=== PATIENT | female | born 1935 | race Caucasian/White ===

== ENCOUNTER 2016-09-17 12:30 | Emergency (ER) | payer BC ==
[~2016-09-17] VITALS: Ht 160 cm; Wt 67.0 kg
[~2016-09-17 12:30] MED LIST: ACET500C5 PO; PROM6.25 PO
[2016-09-17 12:31] VITALS: Ht 160 cm; Wt 67.0 kg
--- NOTE | 2016-09-17 13:33 | RADRPT ---
PROCEDURE: XR Chest. CLINICAL INDICATION: Cough. Neck pain. TECHNIQUE: Two views. Frontal and lateral. COMPARISON: 11/06/2015. FINDINGS: The lungs are clear. The heart size is normal. There is calcification in the aorta consistent with atherosclerosis. There is no pleural effusion. There is no pneumothorax. IMPRESSION: 1. Atherosclerosis. 2. Otherwise normal chest radiograph. RPTAT: QQ .Hernan Barber MD, MD Date Time Electronically viewed and signed by .Hernan Barber MD, on 09/17/2016 13:33 .R/
[2016-09-17] MEDS ORDERED: TYL500 PO (14:20)
[2016-09-17] MEDS ORDERED: AZIT250T94 PO (14:20)
--- NOTE | 2016-09-17 14:33 | ERD ---
ER Documentation Chief Complaint Date/Time DATE: 09/17/16 TIME: 14:31 Chief Complaint 7/10 throat pain with intermittent fever x 3 days HPI This is an 81-year-old female presents to the ER with a sore throat, cough, ear pain, intermittent fevers for the last 3 days. Patient denies any chest pain or shortness of breath. Sore throat is burning in quality is worse whenever she swallows. She denies any difficulty in swallowing. Patient states that cough is dry and constant. She feels that she is getting worse. ROS 12 point review of systems was done, all negative except per HPI. Medications Home Meds Active Scripts Azithromycin* (Zithromax*) 250 Mg Tablet, 250 MG PO .ZPACK DIRECTED, #6 TAB TAKE 500 MG (2 TABS) THE FIRST DAY THEN 250 MG (1 TAB) DAYS 2-5 Prov:SHARON ARIZMENDI 09/17/16 Acetaminophen* (Tylenol*) 500 Mg Tab, 500 MG PO Q4H Y for MILD PAIN LEVEL 1-3 for 3 Days, TAB Prov:SHARON ARIZMENDI 09/17/16 Promethazine w/Codeine* (Phenergan w/Codeine* Syrup) 5 Ml Syrup, 5 ML PO Q4H Y for COUGH for 4 Days, ML Prov:GRAYSON GOVEA MD 11/06/15 Acetaminophen* (Tylophen*) 500 Mg Capsule, 1 CAP PO Q6H Y for PAIN AND OR ELEVATED TEMP, #16 CAP Prov:GRAYSON GOVEA MD 11/06/15 Allergies Allergies: Coded Allergies: Penicillins (Verified Allergy, Unknown, 09/17/16) PMhx/Soc History of Surgery: No Anesthesia Reaction: No Hx Neurological Disorder: No Hx Respiratory Disorders: No Hx Cardiac Disorders: No Hx Psychiatric Problems: No Hx Miscellaneous Medical Probl: No Hx Alcohol Use: No Hx Substance Use: No Hx Tobacco Use: No Physical Exam Vitals Vital Signs Date Time Temp Pulse Resp B/P Pulse Ox O2 Delivery O2 Flow Rate FiO2 09/17/16 12:31 98.3 96 18 129/53 95 Physical Exam GENERAL: The patient is well-developed, well-nourished, in no acute distress. NECK: Cervical spine is non tender with no step off. Supple, no nuchal rigidity HEENT: Atraumatic. Pupils equal, round and reactive to light. Extraocular muscles are grossly intact. Conjunctivae pink, no discharge. Bilateral tympanic membranes are clear with no evidence of erythema, effusion or dulling of the light reflex. Tonsilar erythema with no exudates or uvular deviation. Clear rhinorrhea. RESPIRATORY: Clear to auscultation bilaterally. There are no rales, wheezes or rhonchi. HEART: Regular rate and rhythm. No murmurs, clicks, rubs or gallops. EXTREMITIES: No clubbing or cyanosis. Full range of motion. Grossly neurovascularly intact. NEUROLOGIC: Alert and oriented. Cranial nerves II through XII are intact. SKIN: There is no rash. The skin is warm and dry. Procedures/MDM Differential diagnosis includes but is not limited to; Viral URI, allergic rhinitis, bronchitis, pertussis,pneumonia. This is likely viral in etiology. Clinical suspicion for pneumonia is low as patient appears well, is not hypoxic or in any respiratory distress. Additionally, patients physical examination is benign. Plan was discussed with patient they understand and agree. Patient will be given a trial of azithromycin only to be taken of symptoms last longer than a week. At this time there is no evidence of retropharyngeal abscess or peritonsillar abscess there is no uvular deviation. He does not have any stridor any difficulty in breathing. Patient needs to follow up with PCP in 1- 2 days or return to ER sooner if symptoms worsen. Departure Diagnosis: Primary Impression: Upper respiratory infection Condition: Stable Patient Instructions: Preventing Common Respiratory Infections Additional Instructions: Llame al doctor MERVIN y areli sonny LEE PARA DENTRO DE 1-2 FELIX.Dgale a la secretaria que nosotros le instruimos hacer esta lee.Avise o llame si gill condicin se empeora antes de la lee. Regresa aqui si peor o no mejor. SHARON ARIZMENDI Sep 17, 2016 14:33
== END 2016-09-17 14:33 | disposition home or self-care (01) ==
LOC: FTE 12:30
DX: J06.9 Acute upper respiratory infection, unspecified (principal)
CPT/HCPCS: 71020

== ENCOUNTER 2017-12-23 10:50 | Inpatient (IN) | END 2017-12-25 14:50 | disposition home or self-care (01) | DRG 392 ==

== ENCOUNTER 2018-05-03 21:15 | Emergency (ER) | END 2018-05-04 01:24 | disposition home or self-care (01) ==

== ENCOUNTER 2018-07-21 13:30 | Inpatient (IN) | payer MEDICARE, BC ==
[~2018-07-21] VITALS: Ht 162.6 cm; Wt 70.2 kg
[~2018-07-21 13:30] MED LIST changes: +ACET1TAB40 PO; +ACET325T40 PO; -ACET500C5 PO; +BEN50 PO; +CIPR500T4 PO; +CLAR500T PO; +DOCU-216 PO; +IBUP-1542 PO; +IBUP800T48 PO; +METR500T PO; +OMEP40CA6 PO; +ONDA4TAB8 PO; +PANT40TA3 PO; -PROM6.25 PO; +RANI150T5 PO
[2018-07-21] MEDS ORDERED: SODIUM CHLORIDE 0.9% 1L BAG IV* STA (13:57)
[2018-07-21] MEDS ORDERED: KETOROLAC 30 MG INJ IV STA (14:26)
[2018-07-21] MEDS ORDERED: LEVOFLOXACIN 750MG/D5W (PMX) 150 ML IVPB ONE (16:00)
[2018-07-21] MEDS ORDERED: VANCOMYCIN 1 GM (PMX) 250 ML IVPB ONE (16:00)
[2018-07-21] MEDS ORDERED: IPRATROPIUM (NEB) 0.5 MG/2.5 ML AMP NEB STA (16:11)
[2018-07-21] MEDS ORDERED: morphine 4 MG/ML VIAL IV STA (16:11)
[2018-07-21] MEDS ORDERED: ONDANSETRON 4 MG INJ IV STA (16:11)
[2018-07-21] MEDS ORDERED: ALBUTEROL 0.083% (NEB) 2.5 MG/3 ML AMP NEB STA (16:11)
[2018-07-21] MEDS ORDERED: ACETAMINOPHEN 500 MG TAB PO STA (16:16)
--- NOTE | 2018-07-21 16:23 | ERD ---
ER Documentation Chief Complaint Chief Complaint generalized weakness HPI This is an 82-year-old female with a past medical history of hypertension presents to the emergency department complaining of generalized myalgias, productive cough and fever for the past 3 days. The patient also indicates for the past several weeks she has been having a unilateral left-sided headache, 8 out of 10 in intensity but this is not the worst headache of her life. She saw her primary care physician regarding this headache and had an MRI of her brain performed on July 18, 2018. She denies any neck pain. She denies any recent travel or hospitalizations. She states she had a decrease in appetite. She denies any weakness of her upper or lower extremities. Her past surgical history includes cholecystectomy. ROS All systems reviewed and are negative except as per history of present illness. Medications Home Meds Discontinued Reported Medications Clarithromycin* (Clarithromycin*) 500 Mg Tablet, 500 MG PO BID, TAB STARTED 12-17-17 FOR 14 DAYS 12/23/17 Omeprazole* (Omeprazole*) 40 Mg Capsule.dr, 40 MG PO Q12, #30 CAP 12/23/17 Ranitidine Hcl* (Ranitidine Hcl*) 150 Mg Tablet, 150 MG PO Q12, #60 TAB 12/23/17 Discontinued Scripts Pantoprazole* (Protonix*) 40 Mg Tablet.dr, 40 MG PO DAILY, #30 TAB Prov:PASILABAN,SUNSHINEAR F 05/03/18 Ibuprofen* (Motrin*) 600 Mg Tab, 600 MG PO Q6H PRN for PAIN AND OR ELEVATED TEMP, #20 TAB Prov:PASILABANBHARTI F 05/03/18 Acetaminophen with Codeine (Acetaminophen-Cod #3 Tablet) 1 Each Tablet, 1 TAB PO Q6H PRN for SEVERE PAIN LEVEL 7-10, #10 TAB Prov:PASILABANSUNSHINEAR F 05/03/18 Ondansetron Hcl* (Zofran*) 4 Mg Tablet, 4 MG PO Q8H PRN for NAUSEA AND/OR VOMITING, #30 TAB Prov:PASILABAN,SUNSHINEAR F 05/03/18 Ciprofloxacin Hcl* (Ciprofloxacin Hcl*) 500 Mg Tablet, 500 MG PO BID for 10 Days, TAB Prov:PASILABANSUNSHINEAR F 05/03/18 Ibuprofen* (Motrin*) 800 Mg Tab, 800 MG PO Q6H PRN for PAIN for 5 Days, TAB otc Prov:CHIKYARAPPA,RAFAT K MD 12/25/17 Docusate Sodium (Dok) 100 Mg Capsule, 100 MG PO Q12H PRN for CONSTIPATION for 7 Days, CAP otc Prov:RAFAT RODRIGUEZ MD 12/25/17 Acetaminophen (MAPAP) 325 Mg Tablet, 650 MG PO Q6H PRN for PAIN LEVEL 1-3 OR FEVER for 7 Days, TAB otc Prov:RAFAT RODRIGUEZ MD 12/25/17 Metronidazole* (Flagyl*) 500 Mg Tablet, 500 MG PO Q8 for 7 Days, #23 TAB Prov:RAFAT RODRIGUEZ MD 12/25/17 Ciprofloxacin Hcl* (Ciprofloxacin Hcl*) 500 Mg Tablet, 500 MG PO BID@,18 for 7 Days, #15 TAB Prov:RAFAT RODRIGUEZ MD 12/25/17 Diphenhydramine Hcl* (Benadryl*) 50 Mg Cap, 50 MG PO Q6H PRN for ITCHING for 7 Days, CAP otc Prov:RAFAT RODRIGUEZ MD 12/25/17 Allergies Allergies: Coded Allergies: Penicillins (Verified Allergy, Unknown, 07/21/18) PMhx/Soc History of Surgery: Yes ( AND GALLBLADDER) Anesthesia Reaction: No Hx Neurological Disorder: No Hx Respiratory Disorders: No Hx Cardiac Disorders: No Hx Psychiatric Problems: No Hx Miscellaneous Medical Probl: No Hx Alcohol Use: No Hx Substance Use: No Hx Tobacco Use: No Smoking Status: Never smoker Physical Exam Vitals Vital Signs Date Temp Pulse Resp B/P (MAP) Pulse Ox O2 O2 Flow FiO2 Time Delivery Rate 07/21/18 99.9 101 26 130/75 96 Nasal 16:08 (93) Cannula 07/21/18 Nasal 2.0 15:54 Cannula 07/21/18 116 18 139/71 93 Room Air 15:53 (93) 07/21/18 100.4 108 34 137/70 100 Room Air 14:20 (92) 07/21/18 101.0 116 18 127/59 96 13:32 (81) Physical Exam Constitutional:Well-developed. Well-nourished. HEENT:Normocephalic. Atraumatic.Pupils were equal round reactive to light. Dry mucous membranes.No tonsillar exudates. Funduscopy exam shows sharp optic disks and venous pulsations were present. Neck: No nuchal rigidity. No lymphadenopathy. No posterior cervical spine tenderness or step-offs. Respiratory: Not using accessory muscles of respiration.Lungs were clear to auscultation bilaterally. No rhonchi. No rales. Wheezing bilaterally. Cardiovascular: Regular rate regular rhythm.No murmurs. No rubs were appreciated.S1, S2 normal. Distal pulses are palpable 2+ bilaterally. GI: Abdomen was soft. Nontender. Non Distended. No pulsatile abdominal masses or bruits. No rebound. No guarding. Bowel sounds were present and normal. Muscle skeletal: Full range of motion of both the upper and lower extremities bilaterally.Normal muscle tone.No assymetrical calf tenderness or swelling. Skin: No petechia, no purpura. No lesions on the palms or the soles of the feet. No maculopapular rash. NEURO: Patient was alert, awake, orientated x3.No facial droop. Gait observed and normal with no ataxia.Speech had regular rate and rhythm. No focal neurological deficits. Result Diagram: 07/21/18 1418 07/21/18 1418 Results 24 hrs Laboratory Tests Test 07/21/18 14:18 07/21/18 14:19 07/21/18 15:31 White Blood Count 4.2 10^3/ul Red Blood Count 4.35 10^6/ul Hemoglobin 13.9 g/dl Hematocrit 42.4 % Mean Corpuscular Volume 97.5 fl Mean Corpuscular Hemoglobin 32.0 pg Mean Corpuscular 32.8 g/dl Hemoglobin Concent Red Cell Distribution Width 13.6 % Platelet Count 173 10^3/UL Mean Platelet Volume 10.0 fl Immature Granulocytes % 0.200 % Neutrophils % 66.0 % Lymphocytes % 20.0 % Monocytes % 12.6 % Eosinophils % 1.0 % Basophils % 0.2 % Nucleated Red Blood Cells % 0.0 /100WBC Immature Granulocytes # 0.010 10^3/ul Neutrophils # 2.8 10^3/ul Lymphocytes # 0.8 10^3/ul Monocytes # 0.5 10^3/ul Eosinophils # 0.0 10^3/ul Basophils # 0.0 10^3/ul Nucleated Red Blood Cells # 0.0 10^3/ul Prothrombin Time 12.5 Sec Prothrombin Time Ratio 1.0 INR International 0.92 Normalized Ratio Activated Partial Thromboplast 29.7 Sec Time Sodium Level 136 mmol/L Potassium Level 4.3 mmol/L Chloride Level 101 mmol/L Carbon Dioxide Level 24 mmol/L Anion Gap 11 Blood Urea Nitrogen 13 mg/dl Creatinine 0.65 mg/dl Est Glomerular Filtrat mL/min Rate mL/min Glucose Level 127 mg/dl Calcium Level 9.6 mg/dl Total Bilirubin 0.2 mg/dl Direct Bilirubin 0.00 mg/dl Indirect Bilirubin 0.2 mg/dl Aspartate Amino 66 IU/L Transf (AST/SGOT) Alanine 59 IU/L Aminotransferase (ALT/SGPT) Alkaline Phosphatase 67 IU/L Troponin I < 0.012 ng/ml Total Protein 7.6 g/dl Albumin 4.3 g/dl Globulin 3.30 g/dl Albumin/Globulin Ratio 1.30 POC Venous Lactate 2.2 mmol/L Urine Color STRAW Urine Clarity CLEAR Urine pH 7.0 Urine Specific [place] 1.005 Urine Ketones NEGATIVE mg/dL Urine Nitrite NEGATIVE mg/dL Urine Bilirubin NEGATIVE mg/dL Urine Urobilinogen NEGATIVE mg/dL Urine Leukocyte Esterase TRACE Dian/ul Urine Microscopic RBC 0 /HPF Urine Microscopic WBC 1 /HPF Urine Hemoglobin NEGATIVE mg/dL Urine Glucose NEGATIVE mg/dL Urine Total Protein NEGATIVE mg/dl Current Medications Medications Dose Sig/Júnior Start Time Status Last (Trade) Ordered Route PRN Stop Time Admin Dose Reason Admin Sodium 2,010 ml BOLUS OVER 2 07/21/18 DC 07/21/18 Chloride HOURS STAT 13:57 14:35 (NS) IV* 07/21/18 13:58 Ketorolac 30 mg ONCE STAT 07/21/18 DC 07/21/18 Tromethamine IV 14:26 14:35 (Toradol) 07/21/18 14:27 Vancomycin 250 ml @ ONCE ONCE 07/21/18 HCl 125 mls/hr IVPB 16:00 07/21/18 17:59 150 ml @ ONCE ONCE 07/21/18 07/21/18 Levofloxacin/ 100 mls/hr IVPB 16:00 16:03 Dextrose 07/21/18 17:29 Albuterol 5 mg ONCE STAT 07/21/18 UNV (Proventil NEB 16:11 0.083% (Neb)) 07/21/18 16:12 Ipratropium 0.5 mg ONCE STAT 07/21/18 UNV [place] NEB 16:11 (Atrovent 07/21/18 16:12 0.02% (Neb)) Morphine 4 mg ONCE STAT 07/21/18 UNV Sulfate IV 16:11 (morphine) 07/21/18 16:12 Ondansetron 4 mg ONCE STAT 07/21/18 UNV HCl (Zofran IV 16:11 Inj) 07/21/18 16:12 Procedures/MDM This is an 82-year-old female that presented to the emergency department febrile with Sirs criteria. The patient did receive a 30 cc/kg bolus of normal saline and was started on antibiotics for sepsis of unclear etiology after the chest radiograph showed no evidence of pneumonia, influenza swab was negative and there is no urinary tract infection. Patient's infectious symptoms have not stabilized and the patient is at risk of rapid decompensation. The patient will be admitted for careful hydration, antibiotic therapy, and infectious source control. Severe Sepsis Assessment: Infectious Source: Unknown source End organ damage indicated by: Lactate > 2.0 mmol/L Severe Sepsis Managment: Blood Cultures X 2 before broad spectrum antibiotics initiated within 3 hours of recognition. 30 ml/kg NS bolus Completed Initial Lactate: 2.2 Repeat Lactate pending I considered further perfusion assessment with CVP measurement, SCVO2, bedside ultrasound volume assessment, passive leg raise, trial of further fluid bolus. And preceded with IV fluids 12 Lead EKG tracing ordered and reviewed by myself showed: Sinus tachycardia 114 bpm and no arrhythmia. FL interval normal. QRS duration widened at [address] segment elevation with a left bundle branch block pattern. Utilizing the scar posterior criteria there is no underlying ST segment elevation or depression No ST segment depression. No changes consistent with acute ischemia. The patient will be admitted to the panel physician. Patient will continue to receive IV fluids. She was given intravenous morphine for her myalgias. She was given acetaminophen and Toradol with antipyretics. Critical Care: Time: 55 minutes Treatments/Evaluations: Close monitoring and treatment of unstable vital signs, cardiorespiratory, and neurologic status, while maintaining tight balance of fluid, respiratory, and cardiac interventions. Time does not include performing any of the above billable procedures. Given that the patient also had been complaining of a unilateral left-sided headache for several weeks and did feel is necessary to obtain a CT scan of the patient's head is her son did not have a copy of the results of the MRI of the brain. CT scan of the head showed no intracerebral hemorrhage mass-effect or midline shift. My clinical suspicion was low for meningitis or subarachnoid hemorrhage. Departure Diagnosis: Primary Impression: Sepsis Sepsis type: sepsis due to unspecified organism Qualified Codes: A41.9 - Sepsis, unspecified organism Additional Impression: Myalgia Condition: Serious GILBERT CRUZ MD Jul 21, 2018 16:23
[2018-07-21] MEDS ORDERED: ACETAMINOPHEN 325 MG TAB PO PRN ×2 (17:00→20:00)
[2018-07-21] MEDS ORDERED: ONDANSETRON 4 MG INJ IV PRN ×2 (17:00→20:00)
[2018-07-21] MEDS ORDERED: SOD CHLORIDE 0.9% 1,000 ML IV SCH (19:41)
[2018-07-21] MEDS ORDERED: LIDOCAINE/MYLANTA 40 ML BTL PO ONE (20:00)
[2018-07-21] MEDS ORDERED: HYDROCODONE/APAP (5/325) TAB PO PRN (20:00)
[2018-07-21] MEDS ORDERED: GUAIFENESIN/CODEINE 5ML CUP PO PRN (20:00)
[2018-07-21] MEDS ORDERED: NACL 0.9% 3 ML SYG IV SCH (20:00)
--- NOTE | 2018-07-21 20:08 | HP ---
Date/Time of Note Date/Time of Note DATE: 07/21/18 TIME: 20:08 Assessment/Plan VTE Prophylaxis Pharmacological prophylaxis: other Lines/Catheters IV Catheter Type (from Nrs): Saline Lock Assessment/Plan Hospital Course Objective Physical exam General: Patient is laying in bed and answers questions appropriately Mentation: Patient is alert and oriented 4, Head: Normocephalic atraumatic Eyes: EOMI, pupils reactive to light Neck: Supple, nontender, midline Respiratory: Clear to auscultation bilaterally Cardiovascular: regular rate, no obvious murmurs Gastrointestinal: non-tender to palpation, bowel sounds heard. Neurological: Moves all extremities spontaneously Skin: No new skin lesions Assessment and plan Fever, body ache, headache -Questionable viral syndrome, not influenza a or B -No apparent source of infection at this time -Blood cultures pending -CT head negative Sepsis -Blood cultures -IV fluid -IV antibiotic, until blood cultures are negative -Monitor Hypertension -Patient not on meds at home, monitor, use as needed medication if needed Disposition -Await blood cultures, treat with supportive care. Result Diagram: 07/21/18 1418 07/21/18 1418 Results 24hrs Laboratory Tests Test 07/21/18 14:18 07/21/18 14:19 07/21/18 15:31 07/21/18 18:08 White Blood Count 4.2 L Red Blood Count 4.35 Hemoglobin 13.9 Hematocrit 42.4 Mean Corpuscular 97.5 Volume Mean Corpuscular 32.0 Hemoglobin Mean Corpuscular 32.8 Hemoglobin Concent Red Cell 13.6 Distribution Width Platelet Count 173 # Mean Platelet Volume 10.0 Immature 0.200 Granulocytes % Neutrophils % 66.0 Lymphocytes % 20.0 Monocytes % 12.6 H Eosinophils % 1.0 Basophils % 0.2 Nucleated Red Blood 0.0 Cells % Immature 0.010 Granulocytes # Neutrophils # 2.8 Lymphocytes # 0.8 Monocytes # 0.5 Eosinophils # 0.0 Basophils # 0.0 Nucleated Red Blood 0.0 Cells # Prothrombin Time 12.5 Prothrombin Time 1.0 Ratio INR International 0.92 Normalized Ratio Activated 29.7 Partial Thromboplast Time Sodium Level 136 Potassium Level 4.3 Chloride Level 101 Carbon Dioxide Level 24 Anion Gap 11 Blood Urea Nitrogen 13 Creatinine 0.65 Est Glomerular Filtrat Rate mL/min Glucose Level 127 Calcium Level 9.6 Total Bilirubin 0.2 Direct Bilirubin 0.00 Indirect Bilirubin 0.2 Aspartate Amino 66 H Transf (AST/SGOT) Alanine 59 Aminotransferase (AL T/SGPT) Alkaline Phosphatase 67 Troponin I < 0.012 Total Protein 7.6 Albumin 4.3 Globulin 3.30 H Albumin/Globulin 1.30 Ratio POC Venous Lactate 2.2 *H 1.8 Urine Color STRAW Urine Clarity CLEAR Urine pH 7.0 Urine Specific 1.005 [place] Urine Ketones NEGATIVE Urine Nitrite NEGATIVE Urine Bilirubin NEGATIVE Urine Urobilinogen NEGATIVE Urine Leukocyte TRACE A Esterase Urine Microscopic 0 RBC Urine Microscopic 1 WBC Urine Hemoglobin NEGATIVE Urine Glucose NEGATIVE Urine Total Protein NEGATIVE HPI/ROS Admit Date/Time Admit Date/Time Jul 21, 2018 at 16:54 Hx of Present Illness Patient is a female with a past medical history significant for hypertension but not on medication who presents to [facility] for 3 days of worsening fevers, body aches, headache, cough with sputum production. Patient was found to meet criteria for sepsis in the ED and was admitted into the medicine service. Patient appears comfortable at this time however does complain of a mild fever and chills and still has occasional cough or sputum production as well as the headache. Patient currently denies chest pain, shortness of breath, severe abdominal pain, leg pain, bowel or bladder dysfunction. Patient does state that there is some stomach discomfort but states she has not eaten for the past few days. PMH/Family/Social Past Medical History Medications Current Medications Ondansetron HCl (Zofran Inj) 4 mg ER BRIDGE PRN IV NAUSEA/VOMITING; Start 07/21/18 at 17:00; Stop 07/22/18 at 16:59 Acetaminophen (Tylenol Tab) 650 mg ER BRIDGE PRN PO .MILD PAIN 1-3 OR TEMP; Start 07/21/18 at 17:00; Stop 07/22/18 at 16:59 Sodium Chloride 1,000 ml @ 40 mls/hr Q24H IV ; Start 07/21/18 at 19:41; Stop 07/22/18 at 20:40 IV Flush (NS 3 ml) 3 ml PER PROTOCOL IV ; Start 07/21/18 at 20:00 Ondansetron HCl (Zofran Inj) 4 mg Q6H PRN IV NAUSEA/VOMITING; Start 07/21/18 at 20:00 Acetaminophen (Tylenol Tab) 650 mg Q6H PRN PO .PAIN 1-3 OR TEMP; Start 07/21/18 at 20:00 Acetaminophen/ Hydrocodone Bitart ([place] (5/325)) 1 tab Q6H PRN PO .PAIN 4-6; Start 07/21/18 at 20:00 Levofloxacin/ Dextrose 150 ml @ 100 mls/hr Q48H IVPB ; Start 07/23/18 at 17:00 Guaifenesin/ Codeine Phosphate (Robitussin Ac Liquid Cup) 5 ml Q4H PRN PO cough; Start 07/21/18 at 20:00 Famotidine (Pepcid) 20 mg BID PO ; Start 07/21/18 at 21:00 Coded Allergies: Penicillins (Verified Allergy, Unknown, 07/21/18) Family History Significant Family History: no pertinent family hx Social History Smoking Status: Never smoker Exam/Review of Systems Vital Signs Vitals Vital Signs Date Temp Pulse Resp B/P (MAP) Pulse Ox O2 O2 Flow FiO2 Time Delivery Rate 07/21/18 99.9 100 23 110/59 93 Nasal 2.0 18:44 (76) Cannula MEHREEN HOLLOWAY Jul 21, 2018 20:08
[2018-07-21 20:13] VITALS: Ht 162.6 cm; Wt 70.2 kg
[2018-07-21 20:28] VITALS: PULSE 88
[2018-07-21] MEDS: FAMOTIDINE 20 MG TAB PO SCH (23:00)
[2018-07-21] MEDS ORDERED: LIDOCAINE/MYLANTA 40 ML BTL PO SCH (23:59)
[2018-07-22] VITALS (12 sets, daily range): BP systolic 106–145; BP diastolic 53–76; PULSE 76–88; RESP 18–20
[2018-07-22] MEDS: FAMOTIDINE 20 MG TAB PO SCH ×2 (08:38→20:13)
--- NOTE | 2018-07-22 13:15 | PN ---
Date/Time of Note Date/Time of Note DATE: 07/22/18 TIME: 13:14 Assessment/Plan VTE Prophylaxis Risk score (from Ns)>0 risk: 4 SCD applied (from Ns): Yes Pharmacological prophylaxis: heparin Lines/Catheters IV C[facility]from [facility] Saline Lock Assessment/Plan Hospital Course 82 yo female with acute febrile illness with cough, likely bronchitis - Can continue empiric abx - Dc IVF as eating Likely discharge home tomorrow Result Diagram: 07/22/1814 07/22/1814 Results 24hrs Laboratory Tests Test 07/21/18 14:18 07/21/18 14:19 07/21/18 15:31 07/21/18 18:08 White Blood Count 4.2 L Red Blood Count 4.35 Hemoglobin 13.9 Hematocrit 42.4 Mean Corpuscular 97.5 Volume Mean Corpuscular 32.0 Hemoglobin Mean Corpuscular 32.8 Hemoglobin Concent Red Cell 13.6 Distribution Width Platelet Count 173 # Mean Platelet Volume 10.0 Immature 0.200 Granulocytes % Neutrophils % 66.0 Lymphocytes % 20.0 Monocytes % 12.6 H Eosinophils % 1.0 Basophils % 0.2 Nucleated Red Blood 0.0 Cells % Immature 0.010 Granulocytes # Neutrophils # 2.8 Lymphocytes # 0.8 Monocytes # 0.5 Eosinophils # 0.0 Basophils # 0.0 Nucleated Red Blood 0.0 Cells # Prothrombin Time 12.5 Prothrombin Time 1.0 Ratio INR International 0.92 Normalized Ratio Activated 29.7 Partial Thromboplast Time Sodium Level 136 Potassium Level 4.3 Chloride Level 101 Carbon Dioxide Level 24 Anion Gap 11 Blood Urea Nitrogen 13 Creatinine 0.65 Est Glomerular Filtrat Rate mL/min Glucose Level 127 Calcium Level 9.6 Total Bilirubin 0.2 Direct Bilirubin 0.00 Indirect Bilirubin 0.2 Aspartate Amino 66 H Transf (AST/SGOT) Alanine 59 Aminotransferase (AL T/SGPT) Alkaline Phosphatase 67 Troponin I < 0.012 Total Protein 7.6 Albumin 4.3 Globulin 3.30 H Albumin/Globulin 1.30 Ratio POC Venous Lactate 2.2 *H 1.8 Urine Color STRAW Urine Clarity CLEAR Urine pH 7.0 Urine Specific 1.005 [place] Urine Ketones NEGATIVE Urine Nitrite NEGATIVE Urine Bilirubin NEGATIVE Urine Urobilinogen NEGATIVE Urine Leukocyte TRACE A Esterase Urine Microscopic 0 RBC Urine Microscopic 1 WBC Urine Hemoglobin NEGATIVE Urine Glucose NEGATIVE Urine Total Protein NEGATIVE Test 07/21/18 20:17 07/22/18 06:14 Lactic Acid Level 1.7 White Blood Count 3.1 #L Red Blood Count 3.80 L Hemoglobin 12.3 Hematocrit 37.7 Mean Corpuscular 99.2 Volume Mean Corpuscular 32.4 Hemoglobin Mean Corpuscular 32.6 Hemoglobin Concent Red Cell 14.1 Distribution Width Platelet Count 162 Mean Platelet Volume 10.2 Immature 0.000 L Granulocytes % Neutrophils % 40.6 Lymphocytes % 42.5 Monocytes % 15.0 H Eosinophils % 1.6 Basophils % 0.3 Nucleated Red Blood 0.0 Cells % Immature 0.000 Granulocytes # Neutrophils # 1.3 L Lymphocytes # 1.3 Monocytes # 0.5 Eosinophils # 0.1 Basophils # 0.0 Nucleated Red Blood 0.0 Cells # Sodium Level 139 Potassium Level 4.1 Chloride Level 102 Carbon Dioxide Level 25 Anion Gap 12 Blood Urea Nitrogen 11 Creatinine 0.73 Est Glomerular Filtrat Rate mL/min Glucose Level 107 Hemoglobin A1c 5.9 Calcium Level 8.8 Magnesium Level 2.0 Total Bilirubin 0.1 L Direct Bilirubin 0.00 Indirect Bilirubin 0.1 Aspartate Amino 42 Transf (AST/SGOT) Alanine 47 Aminotransferase (AL T/SGPT) Alkaline Phosphatase 51 Total Protein 6.7 Albumin 3.7 Globulin 3.00 Albumin/Globulin 1.23 Ratio Triglycerides Level 108 Cholesterol Level 151 LDL Cholesterol, 93 Calculated HDL Cholesterol 36 Cholesterol/HDL 4.1 Ratio Subjective 24 Hr Interval Summary Free Text/Dictation Feeling a bit better since arrival. Not ready to go home yet she says Exam/Review of Systems Exam Vitals Vital Signs Date Temp Pulse Resp B/P (MAP) Pulse Ox O2 O2 Flow FiO2 Time Delivery Rate 07/22/18 76 12:00 07/22/18 98.0 20 124/64 95 Room Air 11:03 (84) 07/22/18 2.0 08:00 Intake and Output 07/21/18 07/21/18 07/22/18 1515:00 23:00 07:00 IntakeIntake Total 640 ml BalanceBalance 640 ml Constitutional: alert, oriented, well developed Psych: no complaints, nl mood/affect Head: normocephalic, atraumatic Eyes: nl conjunctiva, EOMI, nl lids, nl sclera, PERRL ENMT: nl external ears & nose, nl lips & teeth, nl nasal mucosa & septum Neck: supple, non-tender Respiratory: clear to auscultation, normal air movement Cardiovascular: regular rate and rhythm, nl pulses Gastrointestinal: soft, nl liver, spleen, non-tender Musculoskeletal: nl extremities to inspection, nl gait and stance Extremities: normal pulses 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, nl mental status, nl speech, nl strength Skin: nl turgor; No rash or lesions Lymph: nl lymph nodes Results Results 24hrs Laboratory Tests Test 07/21/18 14:18 07/21/18 14:19 07/21/18 15:31 07/21/18 18:08 White Blood Count 4.2 L Red Blood Count 4.35 Hemoglobin 13.9 Hematocrit 42.4 Mean Corpuscular 97.5 Volume Mean Corpuscular 32.0 Hemoglobin Mean Corpuscular 32.8 Hemoglobin Concent Red Cell 13.6 Distribution Width Platelet Count 173 # Mean Platelet Volume 10.0 Immature 0.200 Granulocytes % Neutrophils % 66.0 Lymphocytes % 20.0 Monocytes % 12.6 H Eosinophils % 1.0 Basophils % 0.2 Nucleated Red Blood 0.0 Cells % Immature 0.010 Granulocytes # Neutrophils # 2.8 Lymphocytes # 0.8 Monocytes # 0.5 Eosinophils # 0.0 Basophils # 0.0 Nucleated Red Blood 0.0 Cells # Prothrombin Time 12.5 Prothrombin Time 1.0 Ratio INR International 0.92 Normalized Ratio Activated 29.7 Partial Thromboplast Time Sodium Level 136 Potassium Level 4.3 Chloride Level 101 Carbon Dioxide Level 24 Anion Gap 11 Blood Urea Nitrogen 13 Creatinine 0.65 Est Glomerular Filtrat Rate mL/min Glucose Level 127 Calcium Level 9.6 Total Bilirubin 0.2 Direct Bilirubin 0.00 Indirect Bilirubin 0.2 Aspartate Amino 66 H Transf (AST/SGOT) Alanine 59 Aminotransferase (AL T/SGPT) Alkaline Phosphatase 67 Troponin I < 0.012 Total Protein 7.6 Albumin 4.3 Globulin 3.30 H Albumin/Globulin 1.30 Ratio POC Venous Lactate 2.2 *H 1.8 Urine Color STRAW Urine Clarity CLEAR Urine pH 7.0 Urine Specific 1.005 [place] Urine Ketones NEGATIVE Urine Nitrite NEGATIVE Urine Bilirubin NEGATIVE Urine Urobilinogen NEGATIVE Urine Leukocyte TRACE A Esterase Urine Microscopic 0 RBC Urine Microscopic 1 WBC Urine Hemoglobin NEGATIVE Urine Glucose NEGATIVE Urine Total Protein NEGATIVE Test 07/21/18 20:17 07/22/18 06:14 Lactic Acid Level 1.7 White Blood Count 3.1 #L Red Blood Count 3.80 L Hemoglobin 12.3 Hematocrit 37.7 Mean Corpuscular 99.2 Volume Mean Corpuscular 32.4 Hemoglobin Mean Corpuscular 32.6 Hemoglobin Concent Red Cell 14.1 Distribution Width Platelet Count 162 Mean Platelet Volume 10.2 Immature 0.000 L Granulocytes % Neutrophils % 40.6 Lymphocytes % 42.5 Monocytes % 15.0 H Eosinophils % 1.6 Basophils % 0.3 Nucleated Red Blood 0.0 Cells % Immature 0.000 Granulocytes # Neutrophils # 1.3 L Lymphocytes # 1.3 Monocytes # 0.5 Eosinophils # 0.1 Basophils # 0.0 Nucleated Red Blood 0.0 Cells # Sodium Level 139 Potassium Level 4.1 Chloride Level 102 Carbon Dioxide Level 25 Anion Gap 12 Blood Urea Nitrogen 11 Creatinine 0.73 Est Glomerular Filtrat Rate mL/min Glucose Level 107 Hemoglobin A1c 5.9 Calcium Level 8.8 Magnesium Level 2.0 Total Bilirubin 0.1 L Direct Bilirubin 0.00 Indirect Bilirubin 0.1 Aspartate Amino 42 Transf (AST/SGOT) Alanine 47 Aminotransferase (AL T/SGPT) Alkaline Phosphatase 51 Total Protein 6.7 Albumin 3.7 Globulin 3.00 Albumin/Globulin 1.23 Ratio Triglycerides Level 108 Cholesterol Level 151 LDL Cholesterol, 93 Calculated HDL Cholesterol 36 Cholesterol/HDL 4.1 Ratio Medications Medication Current Medications Sodium Chloride 1,000 ml @ 40 mls/hr Q24H IV Last administered on 07/21/18at 23:00; Admin Dose 40 MLS/HR; Start 07/21/18 at 19:41; Stop 07/22/18 at 20:40 IV Flush (NS 3 ml) 3 ml PER PROTOCOL IV ; Start 07/21/18 at 20:00 Ondansetron HCl (Zofran Inj) 4 mg Q6H PRN IV NAUSEA/VOMITING Last administered on 07/21/18at 22:59; Admin Dose 4 MG; Start 07/21/18 at 20:00 Acetaminophen (Tylenol Tab) 650 mg Q6H PRN PO .PAIN 1-3 OR TEMP; Start 07/21/18 at 20:00 Acetaminophen/ Hydrocodone Bitart ([place] (5/325)) 1 tab Q6H PRN PO .PAIN 4-6; Start 07/21/18 at 20:00 Levofloxacin/ Dextrose 150 ml @ 100 mls/hr Q48H IVPB ; Start 07/23/18 at 17:00 Guaifenesin/ Codeine Phosphate (Robitussin Ac Liquid Cup) 5 ml Q4H PRN PO cough; Start 07/21/18 at 20:00 Famotidine (Pepcid) 20 mg BID PO Last administered on 07/22/18at 08:38; Admin Dose 20 MG; Start 07/21/18 at 21:00 LEANDRA GUZMÁN MD Jul 22, 2018 13:15
[2018-07-22] MEDS ORDERED: ACETAMINOPHEN 500 MG TAB PO PRN (18:00)
[2018-07-22] MEDS ORDERED: ZOLPIDEM 5 MG TAB PO PRN (18:00)
[2018-07-22] MEDS: MAGNESIUM HYDROXIDE 30ML CUP PO PRN (20:13)
[2018-07-23] VITALS: PULSE 83
[2018-07-23 04:00] VITALS: BP 124/67; PULSE 76; PULSE 84
[2018-07-23 07:56] VITALS: BP 131/69; PULSE 83; RESP 18
[2018-07-23] MEDS: MAGNESIUM HYDROXIDE 30ML CUP PO PRN (08:17)
[2018-07-23] MEDS: FAMOTIDINE 20 MG TAB PO SCH (08:17)
[2018-07-23 09:09] VITALS: PULSE 85
[2018-07-23 11:37] VITALS: BP 126/62; PULSE 84; RESP 18
[2018-07-23] MEDS ORDERED: AZIT500T5 PO (12:09)
[2018-07-23] MEDS ORDERED: AZIT250T13 PO (12:09)
--- NOTE | 2018-07-23 12:09 | PDOCDIS ---
Discharge Instructions DIAGNOSIS Discharge Diagnosis Atypical pneumonia CONDITION [id number] Patient Condition: [id number] Good HOME CARE INSTRUCTIONS: [id number] Diet Instructions: [id number] Regular ACTIVITY: [id number] Activity Restrictions: [id number] No Restrictions FOLLOW UP/APPOINTMENTS Follow-up Plan 1. Take all medications as prescribed. 2. See your primary care doctor in 1-2 weeks. KISHORE HILL MD Jul 23, 2018 12:09
[2018-07-23 12:57] VITALS: PULSE 82
--- NOTE | 2018-07-23 14:54 | DS ---
Date/Time of Note Date/Time of Note DATE: 07/23/18 TIME: 14:52 Discharge Summary Admission/Discharge Info Admit Date/Time Jul 21, 2018 at 16:54 Discharge Date/Time Jul 23, 2018 at 14:29 Discharge Diagnosis Atypical pneumonia Patient Condition: Good Consults None Procedures None Hx of Present Illness Patient is a female with a past medical history significant for hypertension but not on medication who presents to [facility] for 3 days of worsening fevers, body aches, headache, cough with sputum production. Patient was found to meet criteria for sepsis in the ED and was admitted into the medicine service. Patient appears comfortable at this time however does complain of a mild fever and chills and still has occasional cough or sputum production as well as the headache. Patient currently denies chest pain, shortness of breath, severe abdominal pain, leg pain, bowel or bladder dysfunction. Patient does state that there is some stomach discomfort but states she has not eaten for the past few days. Hospital Course Upon admission, labs were unremarkable. Lactate was 2.2. She had no evidence of sepsis. CXR was negative for any infiltrates. She was started on levofloxacin. She was monitored in the hospital and symptoms gradually improved. She will be discharged to finish a course of azithromycin for atypical pneumonia. Home Meds Active Scripts Azithromycin* (Azithromycin*) 500 Mg Tablet, 500 MG PO ONCE, #1 TAB Prov:KISHORE HILL MD 07/23/18 Azithromycin* (Azithromycin*) 250 Mg Tablet, 250 MG PO DAILY, #4 TAB Prov:KISHORE HILL MD 07/23/18 Discontinued Reported Medications Clarithromycin* (Clarithromycin*) 500 Mg Tablet, 500 MG PO BID, TAB STARTED 12-17-17 FOR 14 DAYS 12/23/17 Omeprazole* (Omeprazole*) 40 Mg Capsule.dr, 40 MG PO Q12, #30 CAP 12/23/17 Ranitidine Hcl* (Ranitidine Hcl*) 150 Mg Tablet, 150 MG PO Q12, #60 TAB 12/23/17 Discontinued Scripts Pantoprazole* (Protonix*) 40 Mg Tablet.dr, 40 MG PO DAILY, #30 TAB Prov:BHARTI LUIS 05/03/18 Ibuprofen* (Motrin*) 600 Mg Tab, 600 MG PO Q6H PRN for PAIN AND OR ELEVATED TEMP, #20 TAB Prov:PASILABAN,KLAR F 05/03/18 Acetaminophen with Codeine (Acetaminophen-Cod #3 Tablet) 1 Each Tablet, 1 TAB PO Q6H PRN for SEVERE PAIN LEVEL 7-10, #10 TAB Prov:BHARTI LUIS 05/03/18 Ondansetron Hcl* (Zofran*) 4 Mg Tablet, 4 MG PO Q8H PRN for NAUSEA AND/OR VOMITING, #30 TAB Prov:BHARTI LUIS 05/03/18 Ciprofloxacin Hcl* (Ciprofloxacin Hcl*) 500 Mg Tablet, 500 MG PO BID for 10 Da ys, TAB Prov:BHARTI LUIS 05/03/18 Ibuprofen* (Motrin*) 800 Mg Tab, 800 MG PO Q6H PRN for PAIN for 5 Days, TAB otc Prov:RAFAT RODRIGUEZ MD 12/25/17 Docusate Sodium (Dok) 100 Mg Capsule, 100 MG PO Q12H PRN for CONSTIPATION for 7 Days, CAP otc Prov:RAFAT RODRIGUEZ MD 12/25/17 Acetaminophen (MAPAP) 325 Mg Tablet, 650 MG PO Q6H PRN for PAIN LEVEL 1-3 OR FEVER for 7 Days, TAB otc Prov:RAFAT RODRIGUEZ MD 12/25/17 Metronidazole* (Flagyl*) 500 Mg Tablet, 500 MG PO Q8 for 7 Days, #23 TAB Prov:RAFAT RODRIGUEZ MD 12/25/17 Ciprofloxacin Hcl* (Ciprofloxacin Hcl*) 500 Mg Tablet, 500 MG PO BID@06,18 for 7 Days, #15 TAB Prov:RAFAT RODRIGUEZ MD 12/25/17 Diphenhydramine Hcl* (Benadryl*) 50 Mg Cap, 50 MG PO Q6H PRN for ITCHING for 7 Days, CAP otc Prov:RAFAT RODRIGUEZ MD 12/25/17 Follow-up Plan 1. Take all medications as prescribed. 2. See your primary care doctor in 1-2 weeks. Primary Care Provider Not On Staff Doctor Time spent on discharge: > 30 minutes KISHORE HILL MD Jul 23, 2018 14:54
[2018-07-23] MEDS ORDERED: LEVOFLOXACIN 750MG/D5W (PMX) 150 ML IVPB SCH (17:00)
== END 2018-07-23 14:29 | disposition home or self-care (01) | DRG 195 ==
LOC: E/R 13:30 → TEL 16:54 → CANBEDREQ 20:57
PROVIDERS: ADMIT Internal Medicine; ATTEND Internal Medicine
DX: J18.9 Pneumonia, unspecified organism (principal); I10 Essential (primary) hypertension; Z88.0 Allergy status to penicillin
CPT/HCPCS: 36415; 70450; 71045; 80053; 80061; 81001; 83036; 83605; 83735; 84484; 85025; 85610; 85730; 87040; 87086; 87400; 93005; 94664; 96374; 96375; J1885; J1956; J2270; J2405; J3370; J7030